=== PATIENT | female | born 1995 | race Caucasian/White ===

== ENCOUNTER 2018-10-06 19:15 | Inpatient (IN) | payer MEDICAID ==
[2018-10-06] MEDS ORDERED: Penicillin G Potassium 5 MILLUNITS in Sodium Chloride 0.9% 50 ML IV ONE (19:36)
[2018-10-06] MEDS ORDERED: Lactated Ringers 1,000 ML IV ONE (19:51)
[2018-10-06] MEDS ORDERED: ePHEDrine 50 MG/ML SDV IVPUSH PRN (19:51)
[2018-10-06] MEDS ORDERED: Sodium Chloride 0.9% 10 ML Syringe FLUSH PRN (20:04)
[2018-10-06] MEDS ORDERED: Ondansetron 4 MG/2 ML SDV IV PRN (20:04)
--- NOTE | 2018-10-06 20:22 | PCM.LDHP ---
L&D History of Present Illness - General Date of Service: 10/06/18 Admit Problem/Dx: Patient Status Order with Admit Dx/Problem 10/06/18 20:05 Patient Status [ADT] Routine Admission Diagnosis/Problem Admission Diagnosis/Problem - Related Data Allergies/Adverse Reactions: Allergies Allergy/AdvReac Type Severity Reaction Status Date / Time No Known Allergies Allergy Verified 10/02/18 16:51 Home Medications: Home Meds Ondansetron [Zofran ODT] 4 mg PO Q6H PRN 10/02/18 [History] Pnv No.122/Iron/Folic Acid [ Multi Tablet] 1 tab PO DAILY 10/02/18 [ History] hydrOXYzine pamoate [Hydroxyzine Pamoate] 50 mg PO BEDTIME PRN 10/02/18 [History ] H&P Review of Systems - Review of Systems: Review Of Systems: See Below General: Reports: No Symptoms HEENT: Reports: No Symptoms Pulmonary: Reports: No Symptoms Cardiovascular: Reports: No Symptoms Gastrointestinal: Reports: No Symptoms Genitourinary: Reports: No Symptoms Musculoskeletal: Reports: No Symptoms Skin: Reports: No Symptoms Psychiatric: Reports: No Symptoms Neurological: Reports: No Symptoms Hematologic/Lymphatic: Reports: No Symptoms Immunologic: Reports: No Symptoms L&D Exam - Exam Exam: See Below - Vital Signs Weight: 98.883 kg - OB Specific Contraction Intensity: Moderate Movement: Active Heart Tones: Present Heart Rate (FHR) Variability: Moderate (6-25 bmp) Presentation: Vertex - Terrell Score Terrell Score Cervix Position: Posterior Terrell Score Consistency: Soft Terrell Score Effacement: >80% Terrell Score Dilation: 1-2 cm Terrell Score 's Station: -1 ,0 Terrell Score Total: 8 - Exam General: Alert, Oriented HEENT: PERRLA, Conjunctiva Clear, EACs Clear, EOMI, Hearing Intact, Mucosa Moist & [place], Nares Patent, Normal Nasal Septum, Posterior Pharynx Clear, TMs Clear Neck: Supple, Trachea Midline Lungs: Clear to Auscultation, Normal Respiratory Effort Cardiovascular: Regular Rate, Regular Rhythm GI/Abdominal Exam: Normal Bowel Sounds, Soft, Non-Tender, No Organomegaly, No Distention, No Abnormal Bruit, No Mass, Pelvis Stable Rectal Exam: Normal Exam, Normal Rectal Tone Genitourinary: Normal external exam, Normal bimanual exam, Normal speculum exam Back Exam: Normal Inspection, Full Range of Motion Extremities: Normal Inspection, Normal Range of Motion, Non-Tender, No Pedal Edema, Normal Capillary Refill Skin: Warm, Dry, Intact Neurological: Cranial Nerves Intact, Reflexes Equal Bilateral Psychiatric: Alert, Normal Affect, Normal Mood - Patient Data Lab Results Last 24 hrs: Laboratory Results - last 24 hr 10/06/18 10/06/18 Range/Units 19:27 19:29 Urine Color Yellow Urine Appearance Clear Urine pH 7.0 (4.5-8.0) Ur Specific [place] 1.010 (1.008-1.030) Urine Protein Negative (NEGATIVE) mg/dL Urine Glucose (UA) Normal (NEGATIVE) mg/dL Urine Ketones Negative (NEGATIVE) mg/dL Urine Occult Blood Negative (NEGATIVE) Urine Nitrite Negative (NEGATIVE) Urine Bilirubin Negative (NEGATIVE) Urine Urobilinogen Normal (NORMAL) mg/dL Ur Leukocyte Esterase Negative (NEGATIVE) Urine RBC 0-5 (0-5) Urine WBC 0-5 (0-5) Ur Epithelial Cells Moderate Amorphous Sediment Few Urine Bacteria Few Urine Mucus Few Membrane Rupture Positive H (NEGATIVE) - Problem List (1) SNOMED Code(s): 69757509 ICD Code: Z34.90 - ENCNTR FOR SUPRVSN OF NORMAL , UNSP, UNSP TRIMESTER Status: Acute Current Visit: Yes Qualifiers: Weeks of gestation: 39 weeks Qualified Code(s): Z3A.39 - 39 weeks gestation of (2) Positive GBS test SNOMED Code(s): 686284633, 153905943 ICD Code: B95.1 - STREPTOCOCCUS, GROUP B, CAUSING DISEASES CLASSD ELSWHR Status: Acute Current Visit: Yes (3) SROM (spontaneous rupture of membranes) SNOMED Code(s): 469081831 ICD Code: SCS4187 - Status: Acute Current Visit: Yes Problem List Initiated/Reviewed/Updated: Yes Orders Last 24hrs: Active Orders 24 hr Category Date Time Status Patient Status [ADT] Routine ADT 10/06/18 20:05 Active Ambulate [RC] PER UNIT ROUTINE Care 10/06/18 20:04 Active Communication Order [RC] ASDIRECTED Care 10/06/18 20:05 Active Communication Order [RC] Per Unit Routine Care 10/06/18 19:51 Active Heart Tones [RC] PER UNIT ROUTINE Care 10/06/18 20:05 Active Non Stress Test [RC] Click to Edit Care 10/06/18 20:05 Active Insert Urinary Catheter [OM.PC] ASDIRECTED Care 10/06/18 20:00 Ordered Local Anesthetic Infusion Pump [RC] ASDIRECTED Care 10/06/18 19:51 Active Notify Provider Vital Signs [RC] PRN Care 10/06/18 20:04 Active Notify Provider [RC] PRN Care 10/06/18 20:05 Active OB Check [OM.PC] Click To Edit Care 10/06/18 19:26 Ordered PCEA Epidural [RC] ASDIRECTED Care 10/06/18 19:51 Active PCEA Epidural [RC] ASDIRECTED Care 10/06/18 19:51 Active Up ad Karlene [RC] ASDIRECTED Care 10/06/18 20:04 Active Urinary Catheter Assessment [RC] ASDIRECTED Care 10/06/18 19:51 Active VTE/DVT Education [RC] Click to Edit Care 10/06/18 20:08 Active Verify Patient Consent Obtain [RC] ASDIRECTED Care 10/06/18 19:51 Active Vital Signs [RC] PER UNIT ROUTINE Care 10/06/18 20:05 Active CBC WITH AUTO DIFF [HEME] Stat Lab 10/06/18 20:04 Ordered DRUG SCREEN, URINE [URCHEM] Routine Lab 10/06/18 20:04 Ordered Lactated Ringers [Ringers, Lactated] 1,000 ml Med 10/06/18 19:51 Active IV ONETIME Ondansetron [Zofran] Med 10/06/18 20:04 Ordered 4 mg IV Q4H PRN Oxytocin/Normal Saline [Pitocin in NS 20 Units/1,000 ML Med 10/06/18 20:15 Ordered ] 20 unit in 1,000 ml IV TITRATE Sodium Chloride 0.9% [Saline Flush] Med 10/06/18 20:04 Ordered 10 ml FLUSH ASDIRECTED PRN ePHEDrine [ePHEDrine sulfate] Med 10/06/18 19:51 Active 10 mg IVPUSH ASDIRECTED PRN DVT/VTE Prophylaxis Reflex [OM.PC] Routine Oth 10/06/18 20:04 Ordered Epidural Catheter Management [OM.PC] Urgent Oth 10/06/18 19:51 Ordered Saline Lock Insert [OM.PC] Routine Oth 10/06/18 20:05 Ordered Resuscitation Status Routine Resus Stat 10/06/18 20:04 Ordered Medication Orders Ephedrine Sulfate (Ephedrine Sulfate) 10 mg IVPUSH ASDIRECTED PRN PRN Reason: Hypotension Lactated Ringer's (Ringers, Lactated) 1,000 mls @ 999 mls/hr IV ONETIME ONE Stop: 10/06/18 20:51 Last Admin: 10/06/18 20:03 Dose: 999 mls/hr Oxytocin/Sodium Chloride (Pitocin In Ns 20 Units/1,000 Ml) 20 unit in 1,000 mls @ 6 mls/hr IV TITRATE CARLY; Protocol Ondansetron HCl (Zofran) 4 mg IV Q4H PRN PRN Reason: Nausea/Vomiting Sodium Chloride (Saline Flush) 10 ml FLUSH ASDIRECTED PRN PRN Reason: Keep Vein Open Assessment/Plan Comment:: 10/06/2018 23 yo here at 39 2/7 gestational weeks SROM at home earlier Contractions irregular FHTs category one SVE-2/90/0 History of fast labor and deliveries Plan- Continue to monitor for labor Continue to monitor FHTs Epidural for pain control per patient request Pitocin per protocol to make more consistent contractions Pen G per protocol for GBS positive Plan and anticipate a vaginal delivery
[2018-10-06] MEDS ORDERED: Ropivacaine 100 ML ONE (20:44)
[2018-10-06] MEDS ORDERED: Ropivacaine 200 MG in Premix Bag 1 BAG EPIDUR SCH (20:45)
--- NOTE | 2018-10-06 21:13 | ANES ---
DATE OF SERVICE: 10/06/2018 INDICATION: A 23-year-old lady, in the Obstetrical Department, in active labor. Term . I was asked by Quin Todd, certified nurse-box blank machine feeder to place a labor epidural. This is her third . She has had epidurals with her previous two. All questions were answered. The procedure was explained in detail to her and a consent was signed. DESCRIPTION OF PROCEDURE: She was placed in the sitting position. Her back was examined. A Betadine solution prep was done and the epidural was accomplished, what I believe is L4-5 x1 with a good feel. No paresthesia. No CSF. No blood. Lidocaine 1.5% with epinephrine 1:200,000, 5 mL was injected through the needle. The epidural catheter was then passed to the four julia. The needle was removed and the catheter was taped in place. She was placed in a supine position and she was given a bolus of ropivacaine 0.2% 15 mL over approximately 2 minutes. A continuous infusion of ropivacaine 0.2% at 12 mL/h was initiated. After approximately 10 to 15 minutes the block appeared to be working quite well, she was comfortable, tolerated the procedure well. Clovis Monae CRNA /[id number]
[2018-10-06] MEDS ORDERED: Lactated Ringers 1,000 ML IV SCH (22:30)
[2018-10-06] MEDS ORDERED: Methylergonovine 0.2 MG/1 ML Amp ONE (23:28)
[2018-10-06] MEDS ORDERED: Carboprost Tromethamine 250 MCG/1 ML Amp ONE (23:28)
[2018-10-06] MEDS ORDERED: Misoprostol 200 MCG Tab ONE (23:28)
[2018-10-06] MEDS ORDERED: Methylergonovine 0.2 MG/1 ML Amp IM ONE (23:30)
[2018-10-06] MEDS ORDERED: Ibuprofen 200 MG Tab, 24 Tab Bulk Bottle PO PRN (23:54)
[2018-10-06] MEDS ORDERED: Witch Hazel Medicated Pads 100/Jar TOP PRN (23:54)
[2018-10-06] MEDS ORDERED: Benzocaine 20% Top Spray 56 GM Bottle TOP PRN (23:54)
[2018-10-06] MEDS ORDERED: Acetaminophen 325 MG Tab, 50 Tab Bulk Bottle PO PRN (23:54)
[2018-10-07] MEDS ORDERED: Penicillin G Potassium 2.5 MILLUNITS in Sodium Chloride 0.9% 50 ML IV SCH ×2
--- NOTE | 2018-10-07 00:29 | PCM.DEL ---
L & D Note - General Info Date of Service: 10/07/18 Mother's Due Date: 10/11/18 - Delivery Note Labor: Spontaneous, Augmented by Oxytocin Delivery Outcome: Livebirth Infant Delivery Method: Spontaneous Vaginal Delivery-Single Infant Delivery Mode: Spontaneous Presentation: Right Occiput Anterior (GABY) Nuchal Cord: None Anesthesia Type: Epidural Episiotomy Type: None Laceration: None Placenta: Intact, Spontaneous Cord: 3 Vessels Estimated Blood Loss: 400 [place]: Bulb Syringe, Stimulated, Warmed, [place] Used Score 1 min: 9 Score 5 min: 9 Second Stage Interventions: Reports: Encouragement Given, Pushing Effectively, Pushing, McRobert's Position Delivery Comments (Free Text/Narrative):: 10/06/2018 23 yo delivered a viable female at 39 2/7 weeks gestation @ 2324 on 10/06/2018 normal spontaneous vaginal delivery in GABY position over and intact perineum. Infant was then placed on prewarmed blanket on mother abdomen. Infant began to cry and pink in color. -9/9, weight-6lbs 15oz, length-19 inches. Cord was then double clamped by provider and cut by father of . Mother began to have bleeding with a few clots the size or a half dollar before delivery of the placenta. Placenta then delivered intact and spontaneously. EBL-400ml, did give one dose of methergine due to the blood loss at the time. No lacerations noted of cervix, vagina, perineum, labia, or rectum. Infant now being held by mother in labor and delivery room, both stable at this time. Stages- [id number] [id number] - General Info Date of Service: 10/07/18 Functional Status: Reports: Pain Controlled - Review of Systems General: Reports: No Symptoms HEENT: Reports: No Symptoms Pulmonary: Reports: No Symptoms Cardiovascular: Reports: No Symptoms Gastrointestinal: Reports: No Symptoms Genitourinary: Reports: No Symptoms Musculoskeletal: Reports: No Symptoms Skin: Reports: No Symptoms Neurological: Reports: No Symptoms Psychiatric: Reports: No Symptoms - Patient Data Weight - Most Recent: 98.883 kg Lab Results Last 24 Hours: Laboratory Results - last 24 hr 10/06/18 10/06/18 10/06/18 Range/Units 19:27 19:29 20:04 WBC 9.2 (4.5-11.0) K/uL RBC 3.80 (3.30-5.50) M/uL Hgb 11.9 L (12.0-15.0) g/dL Hct 36.1 (36.0-48.0) % MCV 95 (80-98) fL MCH 31 (27-31) pg MCHC 33 (32-36) % Plt Count 218 (150-400) K/uL Neut % (Auto) 67 H (36-66) % Lymph % (Auto) 20 L (24-44) % [place] % (Auto) 11 H (2-6) % Eos % (Auto) 1 L (2-4) % Baso % (Auto) 0 (0-1) % Urine Color Yellow Urine Appearance Clear Urine pH 7.0 (4.5-8.0) Ur Specific [place] 1.010 (1.008-1.030) Urine Protein Negative (NEGATIVE) mg/dL Urine Glucose (UA) Normal (NEGATIVE) mg/dL Urine Ketones Negative (NEGATIVE) mg/dL Urine Occult Blood Negative (NEGATIVE) Urine Nitrite Negative (NEGATIVE) Urine Bilirubin Negative (NEGATIVE) Urine Urobilinogen Normal (NORMAL) mg/dL Ur Leukocyte Esterase Negative (NEGATIVE) Urine RBC 0-5 (0-5) Urine WBC 0-5 (0-5) Ur Epithelial Cells Moderate Amorphous Sediment Few Urine Bacteria Few Urine Mucus Few Membrane Rupture Positive H (NEGATIVE) Urine Opiates Screen (NEGATIVE) Ur Oxycodone Screen (NEGATIVE) Urine Methadone Screen (NEGATIVE) Ur Propoxyphene Screen (NEGATIVE) Ur Barbiturates Screen (NEGATIVE) Ur Tricyclics Screen (NEGATIVE) Ur Phencyclidine Scrn (NEGATIVE) Ur Amphetamine Screen (NEGATIVE) U Methamphetamines Scrn (NEGATIVE) Urine MDMA Screen (NEGATIVE) U Benzodiazepines Scrn (NEGATIVE) U Cocaine Metab Screen (NEGATIVE) U Marijuana (THC) Screen (NEGATIVE) 10/06/18 Range/Units 20:04 WBC (4.5-11.0) K/uL RBC (3.30-5.50) M/uL Hgb (12.0-15.0) g/dL Hct (36.0-48.0) % MCV (80-98) fL MCH (27-31) pg MCHC (32-36) % Plt Count (150-400) K/uL Neut % (Auto) (36-66) % Lymph % (Auto) (24-44) % [place] % (Auto) (2-6) % Eos % (Auto) (2-4) % Baso % (Auto) (0-1) % Urine Color Urine Appearance Urine pH (4.5-8.0) Ur Specific [place] (1.008-1.030) Urine Protein (NEGATIVE) mg/dL Urine Glucose (UA) (NEGATIVE) mg/dL Urine Ketones (NEGATIVE) mg/dL Urine Occult Blood (NEGATIVE) Urine Nitrite (NEGATIVE) Urine Bilirubin (NEGATIVE) Urine Urobilinogen (NORMAL) mg/dL Ur Leukocyte Esterase (NEGATIVE) Urine RBC (0-5) Urine WBC (0-5) Ur Epithelial Cells Amorphous Sediment Urine Bacteria Urine Mucus Membrane Rupture (NEGATIVE) Urine Opiates Screen Negative (NEGATIVE) Ur Oxycodone Screen Negative (NEGATIVE) Urine Methadone Screen Negative (NEGATIVE) Ur Propoxyphene Screen Negative (NEGATIVE) Ur Barbiturates Screen Negative (NEGATIVE) Ur Tricyclics Screen Negative (NEGATIVE) Ur Phencyclidine Scrn Negative (NEGATIVE) Ur Amphetamine Screen Negative (NEGATIVE) U Methamphetamines Scrn Negative (NEGATIVE) Urine MDMA Screen Negative (NEGATIVE) U Benzodiazepines Scrn Negative (NEGATIVE) U Cocaine Metab Screen Negative (NEGATIVE) U Marijuana (THC) Screen Negative (NEGATIVE) Med Orders - Current: Current Medications Acetaminophen (Tylenol Bulk Bottle) 325 mg PO Q4H PRN PRN Reason: Pain Benzocaine (Kkwy-Q-Iofzclt 20% [place]) 0 gm TOP Q4H PRN PRN Reason: Perineal Comfort Measure Ephedrine Sulfate (Ephedrine Sulfate) 10 mg IVPUSH ASDIRECTED PRN PRN Reason: Hypotension Oxytocin/Sodium Chloride (Pitocin In Ns 20 Units/1,000 Ml) 20 unit in 1,000 mls @ 6 mls/hr IV TITRATE CARLY; Protocol Last Titration: 10/06/18 21:30 Dose: 9 mls/hr Ropivacaine 200 mg/ Premix 100 mls @ 12 mls/hr EPIDUR ASDIRECTED CARLY Last Admin: 10/06/18 20:40 Dose: 12 mls/hr Penicillin G Potassium 2.5 (millunits/ Sodium Chloride) 50 mls @ 100 mls/hr IV Q4H CARLY Lactated Ringer's (Ringers, Lactated) 1,000 mls @ 125 mls/hr IV ASDIRECTED CARLY Ibuprofen (Motrin Bulk Bottle) 600 mg PO Q6H PRN PRN Reason: Pain Ondansetron HCl (Zofran) 4 mg IV Q4H PRN PRN Reason: Nausea/Vomiting Sodium Chloride (Saline Flush) 10 ml FLUSH ASDIRECTED PRN PRN Reason: Keep Vein Open Witch Maddi (Tucks) 1 pad TOP ASDIRECTED PRN PRN Reason: Hemorrhoids Discontinued Medications Carboprost Tromethamine (Hemabate Ds) Confirm Administered Dose 250 mcg .ROUTE .STK-MED ONE Stop: 10/06/18 23:29 Penicillin G Potassium 5 (millunits/ Sodium Chloride) 50 mls @ 100 mls/hr IV STAT ONE Stop: 10/06/18 20:05 Last Admin: 10/06/18 20:01 Dose: 100 mls/hr Lactated Ringer's (Ringers, Lactated) 1,000 mls @ 999 mls/hr IV ONETIME ONE Stop: 10/06/18 20:51 Last Admin: 10/06/18 20:03 Dose: 999 mls/hr Ropivacaine (Naropin 0.2%) Confirm Administered Dose 100 mls @ as directed .ROUTE .STK-MED ONE Stop: 10/06/18 20:45 Methylergonovine Maleate (Methergine) Confirm Administered Dose 0.2 mg .ROUTE .STK-MED ONE Stop: 10/06/18 23:29 Misoprostol (Cytotec) Confirm Administered Dose 800 mcg .ROUTE .STK-MED ONE Stop: 10/06/18 23:29 - Exam General: Alert, Oriented HEENT: Pupils Equal, Pupils Reactive, EOMI, Mucous Membr. Moist/[place] Neck: Supple Lungs: Clear to Auscultation, Normal Respiratory Effort Cardiovascular: Regular Rate, Regular Rhythm GI/Abdominal Exam: Normal Bowel Sounds, Soft, Non-Tender, No Organomegaly, No Distention, No Abnormal Bruit, No Mass, Pelvis Stable (Female) Exam: Normal External Exam, Normal Speculum Exam, Normal Bimanual Exam, Enlarged Uterus, Vaginal Bleeding Back Exam: Normal Inspection, Full Range of Motion Extremities: Normal Inspection, Normal Range of Motion, Non-Tender, No Pedal Edema, Normal Capillary Refill Skin: Warm, Dry, Intact Neurological: No New Focal Deficit Psy/Mental Status: Alert, Normal Affect, Normal Mood - Problem List & Annotations (1) SNOMED Code(s): 65149762 Code(s): Z34.90 - ENCNTR FOR SUPRVSN OF NORMAL , UNSP, UNSP TRIMESTER Status: Acute Current Visit: Yes Qualifiers: Weeks of gestation: 39 weeks Qualified Code(s): Z3A.39 - 39 weeks gestation of (2) Positive GBS test SNOMED Code(s): 005410586, 506140427 Code(s): B95.1 - STREPTOCOCCUS, GROUP B, CAUSING DISEASES CLASSD ELSWHR Status: Acute Current Visit: Yes (3) SROM (spontaneous rupture of membranes) SNOMED Code(s): 450410866 Code(s): CBZ8678 - Status: Acute Current Visit: Yes - Problem List Review Problem List Initiated/Reviewed/Updated: Yes - My Orders Last 24 Hours: My Active Orders 10/06/18 19:26 OB Check [OM.PC] Click To Edit 10/06/18 20:04 Ambulate [RC] PER UNIT ROUTINE Notify Provider Vital Signs [RC] PRN Up ad Karlene [RC] ASDIRECTED Ondansetron [Zofran] 4 mg IV Q4H PRN Sodium Chloride 0.9% [Saline Flush] 10 ml FLUSH ASDIRECTED PRN DVT/VTE Prophylaxis Reflex [OM.PC] Routine Resuscitation Status Routine 10/06/18 20:05 Patient Status [ADT] Routine Communication Order [RC] ASDIRECTED Heart Tones [RC] PER UNIT ROUTINE Non Stress Test [RC] Click to Edit Notify Provider [RC] PRN Vital Signs [RC] PER UNIT ROUTINE Saline Lock Insert [OM.PC] Routine 10/06/18 20:08 VTE/DVT Education [RC] Click to Edit 10/06/18 20:15 Oxytocin/Normal Saline [Pitocin in NS 20 Units/1,000 ML] 20 unit in 1,000 ml IV TITRATE 10/06/18 21:55 Dietary Supplements [RC] BIDMEALS 10/06/18 22:30 Lactated Ringers [Ringers, Lactated] 1,000 ml IV ASDIRECTED 10/06/18 23:54 Acetaminophen [Tylenol Bulk Bottle] 325 mg PO Q4H PRN Benzocaine [Hshz-E-Vwpejza 20% [place]] See Dose Instructions TOP Q4H PRN Ibuprofen [Motrin Bulk Bottle] 600 mg PO Q6H PRN Witch Maddi [Tucks] 1 pad TOP ASDIRECTED PRN Assess Lochia [WOMSER] Per Unit Routine Assess Uterine Involution [WOMSER] Per Unit Routine 10/06/18 23:55 Patient Status [ADT] Routine Vital Signs [RC] PFP 10/06/18 23:56 Perineal Care [OM.PC] Per Unit Routine 10/07/18 00:00 Penicillin G Potassium [Pfizerpen] 2.5 millunits Sodium Chloride 0.9% [Normal Saline] 50 ml IV Q4H 10/07/18 07:00 CBC WITH AUTO DIFF [HEME] Routine - Assessment Assessment:: 10/06/2018 23 yo G3 now P3 delivered without complications at 39 2/7 gestational weeks GBS positive-one dose PCN G Labs-A negative, Hep B neg, Hep C neg, HIV neg, RPR nonreactive, Rubella Immune , GBS positive - Plan Plan:: 10/06/2018 23 yo here at 39 2/7 gestational weeks SROM at home earlier Contractions irregular FHTs category one SVE-/0 History of fast labor and deliveries Plan- Continue to monitor for labor Continue to monitor FHTs Epidural for pain control per patient request Pitocin per protocol to make more consistent contractions Pen G per protocol for GBS positive Plan and anticipate a vaginal delivery 10/06/2018 Routine cares Plan discharge at 48 hrs due to GBS
[2018-10-07] MEDS ORDERED: Acetaminophen 325 MG Tab, 50 Tab Bulk Bottle PO PRN (07:14)
--- NOTE | 2018-10-07 07:44 | PCM.PNPP ---
- General Info Date of Service: 10/07/18 Functional Status: Reports: Pain Controlled - Review of Systems General: Reports: No Symptoms HEENT: Reports: No Symptoms Pulmonary: Reports: No Symptoms Cardiovascular: Reports: No Symptoms Gastrointestinal: Reports: No Symptoms Genitourinary: Reports: No Symptoms Musculoskeletal: Reports: No Symptoms Skin: Reports: No Symptoms Neurological: Reports: No Symptoms Psychiatric: Reports: No Symptoms - General Info Date of Service: 10/07/18 - Patient Data Vital Signs - Most Recent: Last Vital Signs Temp 36.6 C 10/07/18 07:21 Pulse 75 10/07/18 07:21 Resp 16 10/07/18 07:21 BP 117/75 10/07/18 07:21 Pulse Ox 100 10/07/18 07:21 Weight - Most Recent: 98.883 kg I&O - Last 24 Hours: Intake & Output 10/06/18 10/07/18 10/07/18 22:59 06:59 14:59 Intake Total 2200 Output Total 800 Balance 1400 Lab Results - Last 24 Hours: Laboratory Results - last 24 hr 10/06/18 10/06/18 10/06/18 Range/Units 19:27 19:29 20:04 WBC 9.2 (4.5-11.0) K/uL RBC 3.80 (3.30-5.50) M/uL Hgb 11.9 L (12.0-15.0) g/dL Hct 36.1 (36.0-48.0) % MCV 95 (80-98) fL MCH 31 (27-31) pg MCHC 33 (32-36) % Plt Count 218 (150-400) K/uL Neut % (Auto) 67 H (36-66) % Lymph % (Auto) 20 L (24-44) % Hale % (Auto) 11 H (2-6) % Eos % (Auto) 1 L (2-4) % Baso % (Auto) 0 (0-1) % Urine Color Yellow Urine Appearance Clear Urine pH 7.0 (4.5-8.0) Ur Specific [place] 1.010 (1.008-1.030) Urine Protein Negative (NEGATIVE) mg/dL Urine Glucose (UA) Normal (NEGATIVE) mg/dL Urine Ketones Negative (NEGATIVE) mg/dL Urine Occult Blood Negative (NEGATIVE) Urine Nitrite Negative (NEGATIVE) Urine Bilirubin Negative (NEGATIVE) Urine Urobilinogen Normal (NORMAL) mg/dL Ur Leukocyte Esterase Negative (NEGATIVE) Urine RBC 0-5 (0-5) Urine WBC 0-5 (0-5) Ur Epithelial Cells Moderate Amorphous Sediment Few Urine Bacteria Few Urine Mucus Few Membrane Rupture Positive H (NEGATIVE) Urine Opiates Screen (NEGATIVE) Ur Oxycodone Screen (NEGATIVE) Urine Methadone Screen (NEGATIVE) Ur Propoxyphene Screen (NEGATIVE) Ur Barbiturates Screen (NEGATIVE) Ur Tricyclics Screen (NEGATIVE) Ur Phencyclidine Scrn (NEGATIVE) Ur Amphetamine Screen (NEGATIVE) U Methamphetamines Scrn (NEGATIVE) Urine MDMA Screen (NEGATIVE) U Benzodiazepines Scrn (NEGATIVE) U Cocaine Metab Screen (NEGATIVE) U Marijuana (THC) Screen (NEGATIVE) 10/06/18 10/07/18 Range/Units 20:04 05:00 WBC 13.7 H (4.5-11.0) K/uL RBC 3.92 (3.30-5.50) M/uL Hgb 12.2 (12.0-15.0) g/dL Hct 37.3 (36.0-48.0) % MCV 95 (80-98) fL MCH 31 (27-31) pg MCHC 33 (32-36) % Plt Count 213 (150-400) K/uL Neut % (Auto) 77 H (36-66) % Lymph % (Auto) 13 L (24-44) % Hale % (Auto) 9 H (2-6) % Eos % (Auto) 0 L (2-4) % Baso % (Auto) 0 (0-1) % Urine Color Urine Appearance Urine pH (4.5-8.0) Ur Specific [place] (1.008-1.030) Urine Protein (NEGATIVE) mg/dL Urine Glucose (UA) (NEGATIVE) mg/dL Urine Ketones (NEGATIVE) mg/dL Urine Occult Blood (NEGATIVE) Urine Nitrite (NEGATIVE) Urine Bilirubin (NEGATIVE) Urine Urobilinogen (NORMAL) mg/dL Ur Leukocyte Esterase (NEGATIVE) Urine RBC (0-5) Urine WBC (0-5) Ur Epithelial Cells Amorphous Sediment Urine Bacteria Urine Mucus Membrane Rupture (NEGATIVE) Urine Opiates Screen Negative (NEGATIVE) Ur Oxycodone Screen Negative (NEGATIVE) Urine Methadone Screen Negative (NEGATIVE) Ur Propoxyphene Screen Negative (NEGATIVE) Ur Barbiturates Screen Negative (NEGATIVE) Ur Tricyclics Screen Negative (NEGATIVE) Ur Phencyclidine Scrn Negative (NEGATIVE) Ur Amphetamine Screen Negative (NEGATIVE) U Methamphetamines Scrn Negative (NEGATIVE) Urine MDMA Screen Negative (NEGATIVE) U Benzodiazepines Scrn Negative (NEGATIVE) U Cocaine Metab Screen Negative (NEGATIVE) U Marijuana (THC) Screen Negative (NEGATIVE) Med Orders - Current: Current Medications Acetaminophen (Tylenol Bulk Bottle) 325 - 650 mg PO Q4H PRN PRN Reason: Pain Benzocaine (Gswj-A-Tsfstvc 20% [place]) 0 gm TOP Q4H PRN PRN Reason: Perineal Comfort Measure Ephedrine Sulfate (Ephedrine Sulfate) 10 mg IVPUSH ASDIRECTED PRN PRN Reason: Hypotension Oxytocin/Sodium Chloride (Pitocin In Ns 20 Units/1,000 Ml) 20 unit in 1,000 mls @ 6 mls/hr IV TITRATE CARLY; Protocol Last Titration: 10/06/18 21:30 Dose: 9 mls/hr Ropivacaine 200 mg/ Premix 100 mls @ 12 mls/hr EPIDUR ASDIRECTED CARLY Last Admin: 10/06/18 20:40 Dose: 12 mls/hr Lactated Ringer's (Ringers, Lactated) 1,000 mls @ 125 mls/hr IV ASDIRECTED CARLY Last Admin: 10/06/18 22:20 Dose: 125 mls/hr Ibuprofen (Motrin Bulk Bottle) 600 mg PO Q6H PRN PRN Reason: Pain Last Admin: 10/07/18 01:23 Dose: 3 tab Ondansetron HCl (Zofran) 4 mg IV Q4H PRN PRN Reason: Nausea/Vomiting Sodium Chloride (Saline Flush) 10 ml FLUSH ASDIRECTED PRN PRN Reason: Keep Vein Open Witch Maddi (Tucks) 1 pad TOP ASDIRECTED PRN PRN Reason: Hemorrhoids Discontinued Medications Acetaminophen (Tylenol Bulk Bottle) 325 mg PO Q4H PRN PRN Reason: Pain Last Admin: 10/07/18 02:55 Dose: 2 tab Carboprost Tromethamine (Hemabate Ds) Confirm Administered Dose 250 mcg .ROUTE .STK-MED ONE Stop: 10/06/18 23:29 Last Admin: 10/07/18 04:52 Dose: Not Given Penicillin G Potassium 5 (millunits/ Sodium Chloride) 50 mls @ 100 mls/hr IV STAT ONE Stop: 10/06/18 20:05 Last Admin: 10/06/18 20:01 Dose: 100 mls/hr Lactated Ringer's (Ringers, Lactated) 1,000 mls @ 999 mls/hr IV ONETIME ONE Stop: 10/06/18 20:51 Last Admin: 10/06/18 20:03 Dose: 999 mls/hr Ropivacaine (Naropin 0.2%) Confirm Administered Dose 100 mls @ as directed .ROUTE .STK-MED ONE Stop: 10/06/18 20:45 Penicillin G Potassium 2.5 (millunits/ Sodium Chloride) 50 mls @ 100 mls/hr IV Q4H CARLY Last Admin: 10/07/18 01:13 Dose: Not Given Methylergonovine Maleate (Methergine) Confirm Administered Dose 0.2 mg .ROUTE .STK-MED ONE Stop: 10/06/18 23:29 Last Admin: 10/06/18 23:30 Dose: 0.2 mg Methylergonovine Maleate (Methergine) 0.2 mg IM ONETIME ONE Stop: 10/06/18 23:31 Last Admin: 10/07/18 05:18 Dose: Not Given Misoprostol (Cytotec) Confirm Administered Dose 800 mcg .ROUTE .STK-MED ONE Stop: 10/06/18 23:29 Last Admin: 10/07/18 00:35 Dose: Not Given - Interaction Disposition, : in Room with Family Infant Interaction: Holding Feeding: Bottle Fed Infant Support Person: Significant Other - Recovery Exam Fundal Tone: Firm Fundal Level: At Umbilicus Fundal Placement: Midline Lochia Amount: Moderate Lochia Color: Rubra/Red Perineum Description: Intact, Minimal Bruising/Swelling Episiotomy/Laceration: None Bladder Status: Palpable - Exam General: Alert, Oriented, Cooperative HEENT: Pupils Equal Neck: Supple Lungs: Clear to Auscultation, Normal Respiratory Effort Cardiovascular: Regular Rate, Regular Rhythm GI/Abdominal Exam: Normal Bowel Sounds, Soft, Non-Tender, No Organomegaly, No Distention, No Abnormal Bruit, No Mass, Pelvis Stable Extremities: Normal Inspection, Normal Range of Motion, Non-Tender, No Pedal Edema, Normal Capillary Refill Skin: Warm, Dry, Intact Neurological: No New Focal Deficit Psy/Mental Status: Alert, Normal Affect, Normal Mood - Problem List & Annotations (1) SNOMED Code(s): 80177155 Code(s): Z34.90 - ENCNTR FOR SUPRVSN OF NORMAL , UNSP, UNSP TRIMESTER Status: Acute Current Visit: Yes Qualifiers: Weeks of gestation: 39 weeks Qualified Code(s): Z3A.39 - 39 weeks gestation of (2) Positive GBS test SNOMED Code(s): 624344414, 515015730 Code(s): B95.1 - STREPTOCOCCUS, GROUP B, CAUSING DISEASES CLASSD ELSWHR Status: Acute Current Visit: Yes (3) SROM (spontaneous rupture of membranes) SNOMED Code(s): 901476956 Code(s): VXB6866 - Status: Acute Current Visit: Yes - Problem List Review Problem List Initiated/Reviewed/Updated: Yes - My Orders Last 24 Hours: My Active Orders 10/06/18 19:26 OB Check [OM.PC] Click to Edit 10/06/18 20:04 Ambulate [RC] PER UNIT ROUTINE Notify Provider Vital Signs [RC] PRN Up ad Karlene [RC] ASDIRECTED Ondansetron [Zofran] 4 mg IV Q4H PRN Sodium Chloride 0.9% [Saline Flush] 10 ml FLUSH ASDIRECTED PRN DVT/VTE Prophylaxis Reflex [OM.PC] Routine Resuscitation Status Routine 10/06/18 20:05 Patient Status [ADT] Routine Communication Order [RC] ASDIRECTED Notify Provider [RC] PRN Vital Signs [RC] PER UNIT ROUTINE Saline Lock Insert [OM.PC] Routine 10/06/18 20:08 VTE/DVT Education [RC] Click to Edit 10/06/18 20:15 Oxytocin/Normal Saline [Pitocin in NS 20 Units/1,000 ML] 20 unit in 1,000 ml IV TITRATE 10/06/18 21:55 Dietary Supplements [RC] BIDMEALS 10/06/18 22:30 Lactated Ringers [Ringers, Lactated] 1,000 ml IV ASDIRECTED 10/06/18 23:54 Benzocaine [Mhjj-T-Tradzwf 20% [place]] See Dose Instructions TOP Q4H PRN Ibuprofen [Motrin Bulk Bottle] 600 mg PO Q6H PRN Withiren Maddi [Tucks] 1 pad TOP ASDIRECTED PRN Assess Lochia [WOMSER] Per Unit Routine Assess Uterine Involution [WOMSER] Per Unit Routine 10/06/18 23:55 Patient Status [ADT] Routine 10/06/18 23:56 Perineal Care [OM.PC] Per Unit Routine 10/07/18 07:14 Acetaminophen [Tylenol Bulk Bottle] 325 - 650 mg PO Q4H PRN - Assessment Assessment:: 10/06/2018 23 yo G3 now P3 delivered without complications at 39 2/7 gestational weeks GBS positive-one dose PCN G Labs-A negative, Hep B neg, Hep C neg, HIV neg, RPR nonreactive, Rubella Immune , GBS positive 10/07/2018 day one without complications Fundus firm and bleeding decreasing Voiding and passing gas Discharge home tomorrow due to GBS positive - Plan Plan:: 10/06/2018 23 yo here at 39 2/7 gestational weeks SROM at home earlier Contractions irregular FHTs category one SVE-2/90/0 History of fast labor and deliveries Plan- Continue to monitor for labor Continue to monitor FHTs Epidural for pain control per patient request Pitocin per protocol to make more consistent contractions Pen G per protocol for GBS positive Plan and anticipate a vaginal delivery 10/06/2018 Routine cares Plan discharge at 48 hrs due to GBS 10/07/2018 Continue routine cares Plan discharge at 48 hrs due to GBS
--- NOTE | 2018-10-08 08:03 | PCM.PNPP ---
- General Info Date of Service: 10/08/18 Functional Status: Reports: Pain Controlled - Review of Systems General: Reports: No Symptoms HEENT: Reports: No Symptoms Pulmonary: Reports: No Symptoms Cardiovascular: Reports: No Symptoms Gastrointestinal: Reports: No Symptoms Genitourinary: Reports: No Symptoms Musculoskeletal: Reports: No Symptoms Skin: Reports: No Symptoms Neurological: Reports: No Symptoms Psychiatric: Reports: No Symptoms - General Info Date of Service: 10/08/18 - Patient Data Vital Signs - Most Recent: Last Vital Signs Temp 36.4 C 10/08/18 07:18 Pulse 77 10/08/18 07:18 Resp 16 10/08/18 07:18 BP 103/64 10/08/18 07:18 Pulse Ox 98 10/08/18 07:18 Weight - Most Recent: 98.883 kg I&O - Last 24 Hours: Intake & Output 10/07/18 10/08/18 10/08/18 22:59 06:59 14:59 Intake Total 500 Balance 500 Med Orders - Current: Current Medications Acetaminophen (Tylenol Bulk Bottle) 325 - 650 mg PO Q4H PRN PRN Reason: Pain Benzocaine (Mtmb-C-Tnfukgh 20% [place]) 0 gm TOP Q4H PRN PRN Reason: Perineal Comfort Measure Last Admin: 10/07/18 11:10 Dose: 1 bottle Ephedrine Sulfate (Ephedrine Sulfate) 10 mg IVPUSH ASDIRECTED PRN PRN Reason: Hypotension Oxytocin/Sodium Chloride (Pitocin In Ns 20 Units/1,000 Ml) 20 unit in 1,000 mls @ 6 mls/hr IV TITRATE [facility]; Protocol Last Titration: 10/06/18 21:30 Dose: 9 mls/hr Ropivacaine 200 mg/ Premix 100 mls @ 12 mls/hr EPIDUR ASDIRECTED CARLY Last Admin: 10/06/18 20:40 Dose: 12 mls/hr Lactated Ringer's (Ringers, Lactated) 1,000 mls @ 125 mls/hr IV ASDIRECTED CARLY Last Admin: 10/06/18 22:20 Dose: 125 mls/hr Ibuprofen (Motrin Bulk Bottle) 600 mg PO Q6H PRN PRN Reason: Pain Last Admin: 10/07/18 01:23 Dose: 3 tab Ondansetron HCl (Zofran) 4 mg IV Q4H PRN PRN Reason: Nausea/Vomiting Sodium Chloride (Saline Flush) 10 ml FLUSH ASDIRECTED PRN PRN Reason: Keep Vein Open Witch Maddi (Tucks) 1 pad TOP ASDIRECTED PRN PRN Reason: Hemorrhoids Last Admin: 10/07/18 11:09 Dose: 1 bottle Discontinued Medications Acetaminophen (Tylenol Bulk Bottle) 325 mg PO Q4H PRN PRN Reason: Pain Last Admin: 10/07/18 02:55 Dose: 2 tab Carboprost Tromethamine (Hemabate Ds) Confirm Administered Dose 250 mcg .ROUTE .STK-MED ONE Stop: 10/06/18 23:29 Last Admin: 10/07/18 04:52 Dose: Not Given Penicillin G Potassium 5 (millunits/ Sodium Chloride) 50 mls @ 100 mls/hr IV STAT ONE Stop: 10/06/18 20:05 Last Admin: 10/06/18 20:01 Dose: 100 mls/hr Lactated Ringer's (Ringers, Lactated) 1,000 mls @ 999 mls/hr IV ONETIME ONE Stop: 10/06/18 20:51 Last Admin: 10/06/18 20:03 Dose: 999 mls/hr Ropivacaine (Naropin 0.2%) Confirm Administered Dose 100 mls @ as directed .ROUTE .STK-MED ONE Stop: 10/06/18 20:45 Penicillin G Potassium 2.5 (millunits/ Sodium Chloride) 50 mls @ 100 mls/hr IV Q4H CARLY Last Admin: 10/07/18 01:13 Dose: Not Given Methylergonovine Maleate (Methergine) Confirm Administered Dose 0.2 mg .ROUTE .STK-MED ONE Stop: 10/06/18 23:29 Last Admin: 10/06/18 23:30 Dose: 0.2 mg Methylergonovine Maleate (Methergine) 0.2 mg IM ONETIME ONE Stop: 10/06/18 23:31 Last Admin: 10/07/18 05:18 Dose: Not Given Misoprostol (Cytotec) Confirm Administered Dose 800 mcg .ROUTE .STK-MED ONE Stop: 10/06/18 23:29 Last Admin: 10/07/18 00:35 Dose: Not Given - Infant Interaction Infant Disposition, : in Room with Family Interaction: Holding Feeding: Bottle Fed Infant Support Person: Significant Other - Recovery Exam Fundal Tone: Firm Fundal Level: 1 Fingerbreadths Below Umbilicus Fundal Placement: Midline Lochia Amount: Small Lochia Color: Rubra/Red Perineum Description: Intact, Minimal Bruising/Swelling Episiotomy/Laceration: None Bladder Status: Voiding - Exam General: Alert, Oriented HEENT: Pupils Equal, Pupils Reactive, EOMI, Mucous Membr. Moist/[place] Neck: Supple Lungs: Clear to Auscultation, Normal Respiratory Effort Cardiovascular: Regular Rate, Regular Rhythm GI/Abdominal Exam: Normal Bowel Sounds, Soft, Non-Tender, No Organomegaly, No Distention, No Abnormal Bruit, No Mass, Pelvis Stable Extremities: Normal Inspection, Normal Range of Motion, Non-Tender, No Pedal Edema, Normal Capillary Refill Skin: Warm, Dry, Intact Neurological: No New Focal Deficit Psy/Mental Status: Alert, Normal Affect, Normal Mood - Problem List & Annotations (1) SNOMED Code(s): 35727850 Code(s): Z34.90 - ENCNTR FOR SUPRVSN OF NORMAL , UNSP, UNSP TRIMESTER Status: Resolved Current Visit: Yes Qualifiers: Weeks of gestation: 39 weeks Qualified Code(s): Z3A.39 - 39 weeks gestation of (2) Positive GBS test SNOMED Code(s): 061845563, 707901836 Code(s): B95.1 - STREPTOCOCCUS, GROUP B, CAUSING DISEASES CLASSD ELSWHR Status: Acute Current Visit: Yes (3) SROM (spontaneous rupture of membranes) SNOMED Code(s): 482892522 Code(s): HJF7873 - Status: Resolved Current Visit: Yes - Problem List Review Problem List Initiated/Reviewed/Updated: Yes - My Orders Last 24 Hours: My Active Orders 10/07/18 07:14 Acetaminophen [Tylenol Bulk Bottle] 325 - 650 mg PO Q4H PRN 10/09/18 06:00 CBC WITH AUTO DIFF [HEME] Routine - Assessment Assessment:: 10/06/2018 23 yo G3 now P3 delivered without complications at 39 2/7 gestational weeks GBS positive-one dose PCN G Labs-A negative, Hep B neg, Hep C neg, HIV neg, RPR nonreactive, Rubella Immune , GBS positive 10/07/2018 day one without complications Fundus firm and bleeding decreasing Voiding and passing gas Discharge home at 48hrs due to GBS positive 10/08/2018 day two without complications Fundus firm and bleeding decreasing Voiding and passing gas Discharge home tomorrow due to GBS positive - Plan Plan:: 10/06/2018 23 yo here at 39 2/7 gestational weeks SROM at home earlier Contractions irregular FHTs category one SVE- History of fast labor and deliveries Plan- Continue to monitor for labor Continue to monitor FHTs Epidural for pain control per patient request Pitocin per protocol to make more consistent contractions Pen G per protocol for GBS positive Plan and anticipate a vaginal delivery 10/06/2018 Routine cares Plan discharge at 48 hrs due to GBS 10/07/2018 Continue routine cares Plan discharge at 48 hrs due to GBS 10/08/2018 Continue routine cares Plan discharge at 48 hrs due to GBS
--- NOTE | 2018-10-09 08:03 | PCM.PNPP ---
- General Info Date of Service: 10/09/18 Functional Status: Reports: Pain Controlled - Review of Systems General: Reports: No Symptoms HEENT: Reports: No Symptoms Pulmonary: Reports: No Symptoms Cardiovascular: Reports: No Symptoms Gastrointestinal: Reports: No Symptoms Genitourinary: Reports: No Symptoms Musculoskeletal: Reports: No Symptoms Skin: Reports: No Symptoms Neurological: Reports: No Symptoms Psychiatric: Reports: No Symptoms - General Info Date of Service: 10/09/18 - Patient Data Vital Signs - Most Recent: Last Vital Signs Temp 36.5 C 10/09/18 03:47 Pulse 77 10/09/18 03:47 Resp 16 10/09/18 03:47 BP 111/71 10/09/18 03:47 Pulse Ox 98 10/09/18 03:47 Weight - Most Recent: 98.883 kg I&O - Last 24 Hours: Intake & Output 10/08/18 10/09/18 10/09/18 22:59 06:59 14:59 Intake Total 480 Balance 480 Lab Results - Last 24 Hours: Laboratory Results - last 24 hr 10/09/18 Range/Units 06:00 WBC 9.7 (4.5-11.0) K/uL RBC 3.59 (3.30-5.50) M/uL Hgb 11.0 L (12.0-15.0) g/dL Hct 34.7 L (36.0-48.0) % MCV 97 (80-98) fL MCH 31 (27-31) pg MCHC 32 (32-36) % Plt Count 225 (150-400) K/uL Neut % (Auto) 64 (36-66) % Lymph % (Auto) 25 (24-44) % [place] % (Auto) 9 H (2-6) % Eos % (Auto) 3 (2-4) % Baso % (Auto) 1 (0-1) % Med Orders - Current: Current Medications Acetaminophen (Tylenol Bulk Bottle) 325 - 650 mg PO Q4H PRN PRN Reason: Pain Benzocaine (Fufm-C-Okstyli 20% [place]) 0 gm TOP Q4H PRN PRN Reason: Perineal Comfort Measure Last Admin: 10/07/18 11:10 Dose: 1 bottle Lactated Ringer's (Ringers, Lactated) 1,000 mls @ 125 mls/hr IV ASDIRECTED CARLY Last Admin: 10/06/18 22:20 Dose: 125 mls/hr Ibuprofen (Motrin Bulk Bottle) 600 mg PO Q6H PRN PRN Reason: Pain Last Admin: 10/07/18 01:23 Dose: 3 tab Ondansetron HCl (Zofran) 4 mg IV Q4H PRN PRN Reason: Nausea/Vomiting Sodium Chloride (Saline Flush) 10 ml FLUSH ASDIRECTED PRN PRN Reason: Keep Vein Open Witch Maddi (Tucks) 1 pad TOP ASDIRECTED PRN PRN Reason: Hemorrhoids Last Admin: 10/07/18 11:09 Dose: 1 bottle Discontinued Medications Acetaminophen (Tylenol Bulk Bottle) 325 mg PO Q4H PRN PRN Reason: Pain Last Admin: 10/07/18 02:55 Dose: 2 tab Carboprost Tromethamine (Hemabate Ds) Confirm Administered Dose 250 mcg .ROUTE .STK-MED ONE Stop: 10/06/18 23:29 Last Admin: 10/07/18 04:52 Dose: Not Given Ephedrine Sulfate (Ephedrine Sulfate) 10 mg IVPUSH ASDIRECTED PRN PRN Reason: Hypotension Penicillin G Potassium 5 (millunits/ Sodium Chloride) 50 mls @ 100 mls/hr IV STAT ONE Stop: 10/06/18 20:05 Last Admin: 10/06/18 20:01 Dose: 100 mls/hr Lactated Ringer's (Ringers, Lactated) 1,000 mls @ 999 mls/hr IV ONETIME ONE Stop: 10/06/18 20:51 Last Admin: 10/06/18 20:03 Dose: 999 mls/hr Oxytocin/Sodium Chloride (Pitocin In Ns 20 Units/1,000 Ml) 20 unit in 1,000 mls @ 6 mls/hr IV TITRATE [facility]; Protocol Last Titration: 10/06/18 21:30 Dose: 9 mls/hr Ropivacaine 200 mg/ Premix 100 mls @ 12 mls/hr EPIDUR ASDIRECTED CARLY Last Admin: 10/06/18 20:40 Dose: 12 mls/hr Ropivacaine (Naropin 0.2%) Confirm Administered Dose 100 mls @ as directed .ROUTE .STK-MED ONE Stop: 10/06/18 20:45 Penicillin G Potassium 2.5 (millunits/ Sodium Chloride) 50 mls @ 100 mls/hr IV Q4H CARLY Last Admin: 10/07/18 01:13 Dose: Not Given Methylergonovine Maleate (Methergine) Confirm Administered Dose 0.2 mg .ROUTE .STK-MED ONE Stop: 10/06/18 23:29 Last Admin: 10/06/18 23:30 Dose: 0.2 mg Methylergonovine Maleate (Methergine) 0.2 mg IM ONETIME ONE Stop: 10/06/18 23:31 Last Admin: 10/07/18 05:18 Dose: Not Given Misoprostol (Cytotec) Confirm Administered Dose 800 mcg .ROUTE .STK-MED ONE Stop: 10/06/18 23:29 Last Admin: 10/07/18 00:35 Dose: Not Given - Infant Interaction Infant Disposition, : in Room with Family Infant Interaction: Holding Feeding: Bottle Fed Infant Support Person: Significant Other - Recovery Exam Fundal Tone: Firm Fundal Level: 1 Fingerbreadths Below Umbilicus Fundal Placement: Midline Lochia Amount: Scant Lochia Color: Rubra/Red Perineum Description: Intact, Minimal Bruising/Swelling Episiotomy/Laceration: None Bladder Status: Voiding - Exam General: Alert, Oriented, Cooperative HEENT: Pupils Equal, Pupils Reactive, EOMI, Mucous Membr. Moist/[place] Neck: Supple Lungs: Clear to Auscultation, Normal Respiratory Effort Cardiovascular: Regular Rate, Regular Rhythm GI/Abdominal Exam: Normal Bowel Sounds, Soft, Non-Tender, No Organomegaly, No Distention, No Abnormal Bruit, No Mass, Pelvis Stable Extremities: Normal Inspection, Normal Range of Motion, Non-Tender, No Pedal Edema, Normal Capillary Refill Skin: Warm, Dry, Intact Neurological: No New Focal Deficit Psy/Mental Status: Alert, Normal Affect, Normal Mood - Problem List & Annotations (1) SNOMED Code(s): 25646950 Code(s): Z34.90 - ENCNTR FOR SUPRVSN OF NORMAL , UNSP, UNSP TRIMESTER Status: Resolved Current Visit: Yes Qualifiers: Weeks of gestation: 39 weeks Qualified Code(s): Z3A.39 - 39 weeks gestation of (2) Positive GBS test SNOMED Code(s): 907910991, 408786295 Code(s): B95.1 - STREPTOCOCCUS, GROUP B, CAUSING DISEASES CLASSD ELSWHR Status: Acute Current Visit: Yes (3) SROM (spontaneous rupture of membranes) SNOMED Code(s): 402058916 Code(s): ZTI8887 - Status: Resolved Current Visit: Yes - Problem List Review Problem List Initiated/Reviewed/Updated: No - Assessment Assessment:: 10/06/2018 23 yo G3 now P3 delivered without complications at 39 2/7 gestational weeks GBS positive-one dose PCN G Labs-A negative, Hep B neg, Hep C neg, HIV neg, RPR nonreactive, Rubella Immune , GBS positive 10/07/2018 day one without complications Fundus firm and bleeding decreasing Voiding and passing gas Discharge home at 48hrs due to GBS positive 10/08/2018 day two without complications Fundus firm and bleeding decreasing Voiding and passing gas Discharge home tomorrow due to GBS positive 10/09/2018 day three without complications Fundus firm and bleeding decreasing Voiding and passing gas Discharge home today - Plan Plan:: 10/06/2018 23 yo here at 39 2/7 gestational weeks SROM at home earlier Contractions irregular FHTs category one SVE- History of fast labor and deliveries Plan- Continue to monitor for labor Continue to monitor FHTs Epidural for pain control per patient request Pitocin per protocol to make more consistent contractions Pen G per protocol for GBS positive Plan and anticipate a vaginal delivery 10/06/2018 Routine cares Plan discharge at 48 hrs due to GBS 10/07/2018 Continue routine cares Plan discharge at 48 hrs due to GBS 10/08/2018 Continue routine cares Plan discharge at 48 hrs due to GBS 10/09/2018 Continue routine cares Plan discharge home today To see me in six weeks for visit
== END 2018-10-09 11:00 | disposition home or self-care (01) | DRG 807 ==
LOC: JP.OBCHECK 19:15 → JP.OB 19:30 → OBSVTOIN 23:24 → JP.OB 23:24 → JP.MS 10-07 03:00
PROVIDERS: ADMIT Advanced Practice Midwife; ATTEND Advanced Practice Midwife
PROC: 10E0XZZ Delivery of Products of Conception, External Approach (ICD-10-PCS; principal; 2018-10-06)
PROC: 00HU33Z Insertion of Infusion Device into Spinal Canal, Percutaneous Approach (ICD-10-PCS; 2018-10-06)
DX: O99.824 Streptococcus B carrier state complicating childbirth (principal); Z37.0 Single live birth; Z3A.39 39 weeks gestation of pregnancy; O72.1 Other immediate postpartum hemorrhage
CPT/HCPCS: 36415; 51702; 59409; 80305-QW; 81001; 84112; 85025; 88307; 99211; A9270-GY; J2210; J2540; J2590; J2795; J7050; J7120